=== PATIENT | male | born 1970 | race Caucasian/White ===

== ENCOUNTER 2017-08-22 18:30 | Inpatient (IN) ==
[2017-08-22] MEDS ORDERED: metroNIDAZOLE INJ 500 MG in PREMIX 1 EACH IV STA (19:13)
[2017-08-22] MEDS ORDERED: ONDANSETRON 4 MG/2 ML VIAL IV STA (19:13)
[2017-08-22] MEDS ORDERED: PANTOPRAZOLE 40 MG VIAL IV STA (19:13)
[2017-08-22] MEDS ORDERED: LOPERAMIDE 2 MG CAPSULE PO STA (19:13)
[2017-08-22] MEDS ORDERED: SODIUM CHLORIDE 0.9% 1,000 ML IV STA (19:13)
[2017-08-22] MEDS ORDERED: DICYCLOMINE 20 MG/2 ML AMP IM ONE (19:18)
[2017-08-22] MEDS ORDERED: DICYCLOMINE 20 MG/2 ML AMP IM SCH (19:30)
[2017-08-22 19:36] LABS: Basophils % 0.2 % (0.0-0.8); Hematocrit 31.3 VOL% (42.0-52.0); Hemoglobin 9.9 GM/DL (14.0-18.0); Immature Granulocytes % 0.9 %; Immature Granulocytes Absolute 0.05 #; Lymphocytes # 0.3 10*3/uL (1.4-4.0); Lymphocytes % 5.3 % (21.2-54.2); Mean Corpuscular HGB Conc 31.6 GM/DL (32-36); Mean Corpuscular Hemoglobin 28 PG (27-34); Mean Corpuscular Volume 88.7 FL (87-102); Monocytes # 0.7 10*3/uL (0.11-0.8); Monocytes % 12.7 % (1.7-12.7); Neutrophils # 4.7 10*3/uL (1.4-7.4); Neutrophils % 80.9 % (38.7-73.9); Platelet Count 119 T/CUMM (130-400); Red Blood Count 3.53 MC/CUMM (3.8-5.5); Red Cell Distribution Width 18.4 % (9.3-17.3); White Blood Count 5.8 T/CUMM (4-12)
[2017-08-22 19:55] LABS: Albumin 2.8 G/DL (3.4-5.0); Bilirubin,Total 0.4 MG/DL (0.2-1.0); Calcium 8.6 MG/DL (8.5-10.1); Osmolality,Calculated 273.9 MOS/KG (273-304); Potassium 3.3 MMOL/L (3.5-5.1); Total Protein 6.9 G/DL (6.4-8.3)
[2017-08-22] MEDS ORDERED: ONDANSETRON 4 MG/2 ML VIAL ONE (20:07)
[2017-08-22] MEDS ORDERED: PANTOPRAZOLE 40 MG VIAL IV ONE (20:07)
[2017-08-22] MEDS ORDERED: GLUCAGON 1 MG VIAL IM PRN (20:30)
[2017-08-22] MEDS ORDERED: DEXTROSE 50% 25 GM/50 ML VIAL IV PRN (20:30)
[2017-08-22] MEDS ORDERED: ONDANSETRON 4 MG/2 ML VIAL IV PRN (20:30)
[2017-08-22] MEDS ORDERED: PRAVASTATIN 20 MG TABLET PO SCH (21:00)
[2017-08-22] MEDS ORDERED: DICYCLOMINE 20 MG TABLET PO SCH (21:00)
[2017-08-22] MEDS ORDERED: INSULIN REGULAR 100 UNIT/ML SUBCUT SCH (21:00)
[2017-08-22 21:49] LABS: Band Neutrophils 19 % (0-10); Lymphocytes 9 % (20-55); Metamyelocytes 2 %; Segmented Neutrophils 57 % (50-85); Total Cells Counted 100
[2017-08-22 21:51] LABS: Hypochromasia 1+; Platelet Estimate Normal; Polychromasia 1+
[2017-08-22 21:52] LABS: Microcytosis 2+; Tear Drop Cells Few
[2017-08-23] MEDS ORDERED: metroNIDAZOLE INJ 500 MG in PREMIX 1 EACH IV SCH (03:00)
[2017-08-23] MEDS ORDERED: LEVOTHYROXINE 50 MCG TABLET PO SCH (06:00)
[2017-08-23 07:38] LABS: Basophils % 0.3 % (0.0-0.8); Hematocrit 29.3 VOL% (42.0-52.0); Hemoglobin 9.3 GM/DL (14.0-18.0); Immature Granulocytes % 0.8 %; Immature Granulocytes Absolute 0.05 #; Lymphocytes # 0.3 10*3/uL (1.4-4.0); Lymphocytes % 5.2 % (21.2-54.2); Mean Corpuscular HGB Conc 31.7 GM/DL (32-36); Mean Corpuscular Hemoglobin 28 PG (27-34); Mean Corpuscular Volume 87.5 FL (87-102); Mean Platelet Volume 10.7 FL (9.6-12.0); Monocytes # 0.9 10*3/uL (0.11-0.8); Neutrophils # 4.7 10*3/uL (1.4-7.4); Neutrophils % 78.7 % (38.7-73.9); Platelet Count 115 T/CUMM (130-400); Red Blood Count 3.35 MC/CUMM (3.8-5.5); Red Cell Distribution Width 18.4 % (9.3-17.3); White Blood Count 5.9 T/CUMM (4-12)
[2017-08-23 08:01] LABS: Elliptocytes Few; Hypochromasia 1+
[2017-08-23 08:10] LABS: Albumin 2.9 G/DL (3.4-5.0); Bilirubin,Total 0.9 MG/DL (0.2-1.0); Calcium 8.4 MG/DL (8.5-10.1); Osmolality,Calculated 276.1 MOS/KG (273-304); Potassium 3.2 MMOL/L (3.5-5.1); Total Protein 6.6 G/DL (6.4-8.3)
[2017-08-23] MEDS ORDERED: PANTOPRAZOLE 40 MG TABLET PO SCH (09:00)
[2017-08-23] MEDS ORDERED: methylPREDNISolone SOD SUC 125 MG/2 ML VIAL IV SCH (09:00)
[2017-08-23] MEDS ORDERED: CIPROFLOXACIN INJ 200 MG in PREMIX 1 EACH IV SCH (09:00)
[2017-08-23] MEDS ORDERED: AMIODARONE 200 MG TABLET PO SCH (09:00)
[2017-08-23] MEDS: metroNIDAZOLE INJ 500 MG in PREMIX 1 EACH IV SCH ×2 (09:52→17:11)
[2017-08-23] MEDS: AMIODARONE 200 MG TABLET PO SCH (10:05)
[2017-08-23] MEDS: CARVEDILOL 12.5 MG TABLET PO SCH ×2 (10:05→20:24)
[2017-08-23] MEDS: PANTOPRAZOLE 40 MG TABLET PO SCH (10:05)
[2017-08-23] MEDS: ASPIRIN EC 81 MG TABLET PO SCH (10:05)
[2017-08-23] MEDS: amLODIPine 5 MG TABLET PO SCH (10:05)
[2017-08-23] MEDS: FERROUS SULFATE 325 MG TABLET PO SCH ×2 (10:05→20:24)
[2017-08-23] MEDS: PRAVASTATIN 20 MG TABLET PO SCH (10:05)
[2017-08-23] MEDS: SERTRALINE 50 MG TABLET PO SCH (10:06)
[2017-08-23] MEDS: MONTELUKAST 10 MG TABLET PO SCH (10:06)
[2017-08-23] MEDS: CALCIUM ACETATE 667 MG CAPSULE PO SCH ×2 (11:08→17:11)
[2017-08-23] MEDS: INSULIN GLARGINE 100 UNIT/ML SUBCUT SCH (20:28)
[2017-08-24] MEDS: metroNIDAZOLE INJ 500 MG in PREMIX 1 EACH IV SCH ×3 (02:11→17:58)
[2017-08-24 05:39] LABS: Basophils % 0.3 % (0.0-0.8); Hematocrit 31.4 VOL% (42.0-52.0); Hemoglobin 10.1 GM/DL (14.0-18.0); Immature Granulocytes % 0.8 %; Immature Granulocytes Absolute 0.03 #; Lymphocytes # 0.3 10*3/uL (1.4-4.0); Lymphocytes % 8.7 % (21.2-54.2); Mean Corpuscular HGB Conc 32.2 GM/DL (32-36); Mean Corpuscular Hemoglobin 28 PG (27-34); Mean Corpuscular Volume 86.7 FL (87-102); Mean Platelet Volume 10.3 FL (9.6-12.0); Monocytes # 0.7 10*3/uL (0.11-0.8); Monocytes % 18.8 % (1.7-12.7); Neutrophils # 2.7 10*3/uL (1.4-7.4); Neutrophils % 71.4 % (38.7-73.9); Platelet Count 102 T/CUMM (130-400); Red Blood Count 3.62 MC/CUMM (3.8-5.5); Red Cell Distribution Width 18.3 % (9.3-17.3); White Blood Count 3.8 T/CUMM (4-12)
[2017-08-24 06:15] LABS: Band Neutrophils 25 % (0-10); Lymphocytes 16 % (20-55); Platelet Estimate Decreased; Segmented Neutrophils 52 % (50-85); Total Cells Counted 100
[2017-08-24 06:18] LABS: Osmolality,Calculated 279.5 MOS/KG (273-304); Potassium 3.4 MMOL/L (3.5-5.1)
[2017-08-24] MEDS: LEVOTHYROXINE 50 MCG TABLET PO SCH (07:12)
[2017-08-24] MEDS: amLODIPine 5 MG TABLET PO SCH (09:00)
[2017-08-24] MEDS: CARVEDILOL 12.5 MG TABLET PO SCH ×2 (09:00→20:31)
[2017-08-24] MEDS: MONTELUKAST 10 MG TABLET PO SCH (09:20)
[2017-08-24] MEDS: CALCIUM ACETATE 667 MG CAPSULE PO SCH ×3 (09:20→18:01)
[2017-08-24] MEDS: PANTOPRAZOLE 40 MG TABLET PO SCH (09:21)
[2017-08-24] MEDS: PRAVASTATIN 20 MG TABLET PO SCH (09:21)
[2017-08-24] MEDS: AMIODARONE 200 MG TABLET PO SCH (09:21)
[2017-08-24] MEDS: FERROUS SULFATE 325 MG TABLET PO SCH ×2 (09:22→20:32)
[2017-08-24] MEDS: SERTRALINE 50 MG TABLET PO SCH (09:22)
[2017-08-24] MEDS: ASPIRIN EC 81 MG TABLET PO SCH (09:22)
[2017-08-24] MEDS: CIPROFLOXACIN INJ 200 MG in PREMIX 1 EACH IV SCH ×2 (11:05→20:33)
[2017-08-24] MEDS ORDERED: traMADol 50 MG TABLET PO PRN (11:51)
[2017-08-24] MEDS: ONDANSETRON 4 MG/2 ML VIAL IV PRN (16:04)
[2017-08-24] MEDS: INSULIN LISPRO 100 UNIT/ML SUBCUT SCH ×2 (18:01→20:32)
[2017-08-24] MEDS: INSULIN GLARGINE 100 UNIT/ML SUBCUT SCH (20:32)
[2017-08-25] MEDS: metroNIDAZOLE INJ 500 MG in PREMIX 1 EACH IV SCH ×3 (01:19→17:34)
[2017-08-25] MEDS: LEVOTHYROXINE 50 MCG TABLET PO SCH (06:19)
[2017-08-25] MEDS: CALCIUM ACETATE 667 MG CAPSULE PO SCH ×3 (08:00→17:23)
[2017-08-25] MEDS: FERROUS SULFATE 325 MG TABLET PO SCH ×2 (08:00→20:58)
[2017-08-25] MEDS: INSULIN LISPRO 100 UNIT/ML SUBCUT SCH ×4 (08:12→20:59)
[2017-08-25] MEDS: AMIODARONE 200 MG TABLET PO SCH (08:41)
[2017-08-25] MEDS: ONDANSETRON 4 MG/2 ML VIAL IV PRN (08:42)
[2017-08-25] MEDS: SERTRALINE 50 MG TABLET PO SCH (09:00)
[2017-08-25] MEDS: PANTOPRAZOLE 40 MG TABLET PO SCH (09:00)
[2017-08-25] MEDS: MONTELUKAST 10 MG TABLET PO SCH (09:00)
[2017-08-25] MEDS: PRAVASTATIN 20 MG TABLET PO SCH (09:00)
[2017-08-25] MEDS: ASPIRIN EC 81 MG TABLET PO SCH (09:00)
[2017-08-25] MEDS: CARVEDILOL 12.5 MG TABLET PO SCH ×2 (09:15→20:58)
[2017-08-25] MEDS: amLODIPine 5 MG TABLET PO SCH (09:15)
[2017-08-25] MEDS: CIPROFLOXACIN INJ 200 MG in PREMIX 1 EACH IV SCH (15:59)
[2017-08-25] MEDS: INSULIN GLARGINE 100 UNIT/ML SUBCUT SCH (20:58)
[2017-08-26] MEDS: metroNIDAZOLE INJ 500 MG in PREMIX 1 EACH IV SCH ×3 (01:15→17:03)
[2017-08-26] MEDS: CIPROFLOXACIN INJ 200 MG in PREMIX 1 EACH IV SCH ×2 (03:12→18:17)
[2017-08-26 04:32] LABS: Basophils % 0.4 % (0.0-0.8); Eosinophils % 0.4 % (0.00-10.9); Hematocrit 29.3 VOL% (42.0-52.0); Hemoglobin 9.6 GM/DL (14.0-18.0); Immature Granulocytes % 3.7 %; Immature Granulocytes Absolute 0.18 #; Lymphocytes # 0.5 10*3/uL (1.4-4.0); Lymphocytes % 9.6 % (21.2-54.2); Mean Corpuscular HGB Conc 32.8 GM/DL (32-36); Mean Corpuscular Hemoglobin 28 PG (27-34); Mean Corpuscular Volume 86.2 FL (87-102); Mean Platelet Volume 12.2 FL (9.6-12.0); Monocytes # 0.8 10*3/uL (0.11-0.8); Monocytes % 16.1 % (1.7-12.7); Neutrophils # 3.4 10*3/uL (1.4-7.4); Neutrophils % 69.8 % (38.7-73.9); Platelet Count 106 T/CUMM (130-400); White Blood Count 4.9 T/CUMM (4-12)
[2017-08-26 05:25] LABS: Albumin 2.5 G/DL (3.4-5.0); Bilirubin,Total 0.5 MG/DL (0.2-1.0); Calcium 8.3 MG/DL (8.5-10.1); Osmolality,Calculated 281.2 MOS/KG (273-304); Total Protein 6.6 G/DL (6.4-8.3)
[2017-08-26 05:30] LABS: Potassium 2.5 MMOL/L (3.5-5.1)
[2017-08-26 06:04] LABS: Band Neutrophils 3 % (0-10); Lymphocytes 14 % (20-55); Platelet Estimate Decreased; Segmented Neutrophils 77 % (50-85); Total Cells Counted 100
[2017-08-26] MEDS: POTASSIUM CHLORIDE 20 MEQ TABLET PO PRN ×2 (06:05→09:09)
[2017-08-26] MEDS: LEVOTHYROXINE 50 MCG TABLET PO SCH (06:05)
[2017-08-26] MEDS: INSULIN LISPRO 100 UNIT/ML SUBCUT SCH ×4 (09:08→21:14)
[2017-08-26] MEDS: ASPIRIN EC 81 MG TABLET PO SCH (09:08)
[2017-08-26] MEDS: PRAVASTATIN 20 MG TABLET PO SCH (09:08)
[2017-08-26] MEDS: FERROUS SULFATE 325 MG TABLET PO SCH ×2 (09:09→21:13)
[2017-08-26] MEDS: CALCIUM ACETATE 667 MG CAPSULE PO SCH ×3 (09:09→17:04)
[2017-08-26] MEDS: CARVEDILOL 12.5 MG TABLET PO SCH ×2 (09:09→21:13)
[2017-08-26] MEDS: PANTOPRAZOLE 40 MG TABLET PO SCH (09:09)
[2017-08-26] MEDS: MONTELUKAST 10 MG TABLET PO SCH (09:09)
[2017-08-26] MEDS: AMIODARONE 200 MG TABLET PO SCH (09:09)
[2017-08-26] MEDS: SERTRALINE 50 MG TABLET PO SCH (09:09)
[2017-08-26] MEDS: amLODIPine 5 MG TABLET PO SCH (09:09)
[2017-08-26] MEDS: POTASSIUM CHLORIDE RIDER 10 MEQ in PREMIX 1 EACH IV SCH ×4 (10:20→15:21)
[2017-08-26] MEDS: HYOSCYAMINE 0.125 MG TABLET PO SCH ×4 (12:11→21:11)
[2017-08-26] MEDS: POTASSIUM CHLORIDE 20 MEQ TABLET PO SCH ×2 (17:04→21:11)
[2017-08-26] MEDS: INSULIN GLARGINE 100 UNIT/ML SUBCUT SCH (21:13)
[2017-08-27] MEDS: metroNIDAZOLE INJ 500 MG in PREMIX 1 EACH IV SCH ×2 (01:22→09:27)
[2017-08-27 05:43] LABS: Basophils % 0.6 % (0.0-0.8); Eosinophils # 0.1 10*3/uL (0.0-0.87); Eosinophils % 1.9 % (0.00-10.9); Hematocrit 29.3 VOL% (42.0-52.0); Hemoglobin 9.3 GM/DL (14.0-18.0); Immature Granulocytes % 5.8 %; Lymphocytes # 0.6 10*3/uL (1.4-4.0); Lymphocytes % 11.3 % (21.2-54.2); Mean Corpuscular HGB Conc 31.7 GM/DL (32-36); Mean Corpuscular Hemoglobin 28 PG (27-34); Mean Corpuscular Volume 88.8 FL (87-102); Monocytes # 0.7 10*3/uL (0.11-0.8); Monocytes % 13.1 % (1.7-12.7); Neutrophils # 3.5 10*3/uL (1.4-7.4); Neutrophils % 67.3 % (38.7-73.9); Platelet Count 95 T/CUMM (130-400); Red Cell Distribution Width 17.7 % (9.3-17.3); White Blood Count 5.1 T/CUMM (4-12)
[2017-08-27 06:03] LABS: Calcium 8.4 MG/DL (8.5-10.1); Osmolality,Calculated 290.1 MOS/KG (273-304); Potassium 3.4 MMOL/L (3.5-5.1)
[2017-08-27 06:08] LABS: Band Neutrophils 1 % (0-10); Hypochromasia 1+; Lymphocytes 9 % (20-55); Ovalocytes Slight; Platelet Estimate Decreased; Segmented Neutrophils 77 % (50-85); Total Cells Counted 100
[2017-08-27] MEDS: LEVOTHYROXINE 50 MCG TABLET PO SCH (06:20)
[2017-08-27] MEDS: CIPROFLOXACIN INJ 200 MG in PREMIX 1 EACH IV SCH (06:20)
[2017-08-27] MEDS: INSULIN LISPRO 100 UNIT/ML SUBCUT SCH ×2 (09:01→13:07)
[2017-08-27] MEDS: MONTELUKAST 10 MG TABLET PO SCH (09:03)
[2017-08-27] MEDS: ASPIRIN EC 81 MG TABLET PO SCH (09:03)
[2017-08-27] MEDS: PANTOPRAZOLE 40 MG TABLET PO SCH (09:03)
[2017-08-27] MEDS: CARVEDILOL 12.5 MG TABLET PO SCH (09:04)
[2017-08-27] MEDS: FERROUS SULFATE 325 MG TABLET PO SCH (09:04)
[2017-08-27] MEDS: AMIODARONE 200 MG TABLET PO SCH (09:05)
[2017-08-27] MEDS: amLODIPine 5 MG TABLET PO SCH (09:05)
[2017-08-27] MEDS: CALCIUM ACETATE 667 MG CAPSULE PO SCH ×2 (09:05→13:07)
[2017-08-27] MEDS: SERTRALINE 50 MG TABLET PO SCH (09:05)
[2017-08-27] MEDS: PRAVASTATIN 20 MG TABLET PO SCH (09:19)
[2017-08-27] MEDS: HYOSCYAMINE 0.125 MG TABLET PO SCH ×2 (09:25→13:08)
[2017-08-27] MEDS: POTASSIUM CHLORIDE 20 MEQ TABLET PO SCH (09:25)
[2017-08-27 10:47] VITALS: BP 141/73
== END 2017-08-27 13:35 | disposition home or self-care (01) | DRG 385 ==
LOC: N.ED 18:30 → N.EDINP 20:29 → N.3E 21:26
PROVIDERS: ADMIT Internal Medicine; ATTEND Internal Medicine

== ENCOUNTER 2018-01-17 12:29 | Inpatient (IN) ==
[2018-01-17] MEDS ORDERED: HEPARIN 5,000 UNIT/1 ML VIAL IV ONE (13:01)
[2018-01-17] MEDS ORDERED: ASPIRIN 325 MG TABLET PO STA (13:01)
[2018-01-17] MEDS ORDERED: NITROGLYCERIN 2% OINT 1 INCH/GM PACK TOP STA (13:01)
[2018-01-17] MEDS ORDERED: ONDANSETRON 4 MG/2 ML VIAL IV STA (13:04)
[2018-01-17] MEDS ORDERED: MORPHINE 4 MG/1 ML VIAL IV STA ×2 (13:04→14:00)
[2018-01-17] MEDS ORDERED: ONDANSETRON 4 MG/2 ML VIAL ONE (13:05)
[2018-01-17] MEDS ORDERED: MORPHINE 4 MG/1 ML VIAL ONE (13:05)
[2018-01-17 13:20] LABS: Basophils % 0.4 % (0.0-0.8); Eosinophils % 0.4 % (0.00-10.9); Hematocrit 31.5 VOL% (42.0-52.0); Hemoglobin 9.6 GM/DL (14.0-18.0); Immature Granulocytes Absolute 0.11 #; Lymphocytes # 0.4 10*3/uL (1.4-4.0); Lymphocytes % 3.6 % (21.2-54.2); Mean Corpuscular HGB Conc 30.5 GM/DL (32-36); Mean Corpuscular Hemoglobin 29 PG (27-34); Mean Corpuscular Volume 94.9 FL (87-102); Mean Platelet Volume 10.9 FL (9.6-12.0); Monocytes # 0.8 10*3/uL (0.11-0.8); Monocytes % 6.8 % (1.7-12.7); Neutrophils # 9.9 10*3/uL (1.4-7.4); Neutrophils % 87.8 % (38.7-73.9); Platelet Count 151 T/CUMM (130-400); Red Blood Count 3.32 MC/CUMM (3.8-5.5); White Blood Count 11.3 T/CUMM (4-12)
[2018-01-17 13:30] LABS: PT Patient Result 10.7 SECS; Partial Thromboplastin Time 28.1 SECS (0-40)
[2018-01-17 13:42] LABS: Albumin 3.3 G/DL (3.4-5.0); Bilirubin,Total 0.5 MG/DL (0.2-1.0); Calcium 9.3 MG/DL (8.5-10.1); Osmolality,Calculated 290.4 MOS/KG (273-304); Total Protein 7.5 G/DL (6.4-8.3)
[2018-01-17 14:02] LABS: Eosinophils 1 % (0-10); Hypochromasia Slight; Lymphocytes 5 % (20-55); Macrocytosis Slight; Platelet Estimate Adequate; Segmented Neutrophils 89 % (50-85); Total Cells Counted 100
[2018-01-17] MEDS ORDERED: LEVOFLOXACIN INJ 500 MG in PREMIX 1 EACH IV STA (15:41)
[2018-01-17] MEDS: cloNIDine 0.1 MG TABLET PO PRN (17:35)
[2018-01-17] MEDS ORDERED: GLUCAGON 1 MG VIAL IM PRN (18:02)
[2018-01-17] MEDS ORDERED: SODIUM CHLORIDE 0.9% 1,000 ML IV SCH (18:02)
[2018-01-17] MEDS ORDERED: DEXTROSE 50% 25 GM/50 ML VIAL IV PRN (18:02)
[2018-01-17] MEDS ORDERED: ACETAMINOPHEN 325 MG TABLET PO PRN (18:02)
[2018-01-17] MEDS ORDERED: ONDANSETRON 4 MG/2 ML VIAL IV PRN (18:02)
[2018-01-17] MEDS: INSULIN LISPRO 100 UNIT/ML SUBCUT SCH ×2 (19:27→21:08)
[2018-01-17] MEDS ORDERED: CARVEDILOL 12.5 MG TABLET PO SCH (21:00)
[2018-01-17] MEDS: DOCUSATE SODIUM 100 MG CAPSULE PO SCH (21:03)
[2018-01-17] MEDS: FERROUS SULFATE 325 MG TABLET PO SCH (21:03)
[2018-01-17] MEDS: traMADol 50 MG TABLET PO PRN (21:04)
[2018-01-17] MEDS: INSULIN GLARGINE 100 UNIT/ML SUBCUT SCH (21:05)
[2018-01-17] MEDS: TOBRAMYCIN/DEXAMETHASONE 0.3%-0.1% OPH SUSP 2.5 ML BOTTLE BOTH EYES SCH (21:08)
[2018-01-18] MEDS ORDERED: ZALEPLON 5 MG CAPSULE PO PRN (00:28)
[2018-01-18] MEDS: traMADol 50 MG TABLET PO PRN (02:43)
[2018-01-18] MEDS: cloNIDine 0.1 MG TABLET PO PRN (04:02)
[2018-01-18] MEDS: LEVOTHYROXINE 50 MCG TABLET PO SCH (05:48)
[2018-01-18] MEDS: INSULIN LISPRO 100 UNIT/ML SUBCUT SCH ×7 (08:17→21:17)
[2018-01-18] MEDS: DOCUSATE SODIUM 100 MG CAPSULE PO SCH ×2 (08:18→21:17)
[2018-01-18] MEDS: CALCIUM ACETATE 667 MG CAPSULE PO SCH ×3 (08:18→17:32)
[2018-01-18] MEDS: FERROUS SULFATE 325 MG TABLET PO SCH ×2 (08:18→21:17)
[2018-01-18] MEDS: TOBRAMYCIN/DEXAMETHASONE 0.3%-0.1% OPH SUSP 2.5 ML BOTTLE BOTH EYES SCH ×4 (08:18→21:17)
[2018-01-18] MEDS: AMIODARONE 200 MG TABLET PO SCH (08:18)
[2018-01-18] MEDS: ASPIRIN EC 81 MG TABLET PO SCH (08:18)
[2018-01-18] MEDS ORDERED: amLODIPine 5 MG TABLET PO SCH (09:00)
[2018-01-18] MEDS ORDERED: PANTOPRAZOLE 40 MG TABLET PO SCH (09:00)
[2018-01-18] MEDS: cefTRIAXone 1,000 MG in SYRINGE 1 EACH IV SCH (09:07)
[2018-01-18] MEDS ORDERED: amLODIPine 5 MG TABLET PO ONE (15:00)
[2018-01-18] MEDS: ALBUTEROL/IPRATROPIUM 3 ML NEB RESP TX SCH (15:33)
[2018-01-18] MEDS: SERTRALINE 50 MG TABLET PO SCH (17:33)
[2018-01-18] MEDS: PANTOPRAZOLE 40 MG TABLET PO SCH (17:33)
[2018-01-18] MEDS: MONTELUKAST 10 MG TABLET PO SCH (17:35)
[2018-01-18] MEDS: PRAVASTATIN 20 MG TABLET PO SCH (18:02)
[2018-01-18] MEDS: INSULIN GLARGINE 100 UNIT/ML SUBCUT SCH (21:17)
[2018-01-18] MEDS: CARVEDILOL 12.5 MG TABLET PO SCH (21:17)
[2018-01-19] MEDS: ALBUTEROL/IPRATROPIUM 3 ML NEB RESP TX SCH ×3 (00:03→14:50)
[2018-01-19] MEDS: LEVOTHYROXINE 50 MCG TABLET PO SCH (06:09)
[2018-01-19] MEDS: cefTRIAXone 1,000 MG in SYRINGE 1 EACH IV SCH (08:28)
[2018-01-19] MEDS: INSULIN LISPRO 100 UNIT/ML SUBCUT SCH ×7 (08:29→21:12)
[2018-01-19] MEDS: AMIODARONE 200 MG TABLET PO SCH (08:30)
[2018-01-19] MEDS: amLODIPine 10 MG TABLET PO SCH (08:30)
[2018-01-19] MEDS: CALCIUM ACETATE 667 MG CAPSULE PO SCH ×3 (08:30→18:02)
[2018-01-19] MEDS: TOBRAMYCIN/DEXAMETHASONE 0.3%-0.1% OPH SUSP 2.5 ML BOTTLE BOTH EYES SCH ×3 (08:30→18:03)
[2018-01-19] MEDS: DOCUSATE SODIUM 100 MG CAPSULE PO SCH ×2 (08:30→21:12)
[2018-01-19] MEDS: FERROUS SULFATE 325 MG TABLET PO SCH ×2 (08:31→21:12)
[2018-01-19] MEDS: ASPIRIN EC 81 MG TABLET PO SCH (08:31)
[2018-01-19] MEDS: LEVOFLOXACIN INJ 500 MG in PREMIX 1 EACH IV SCH (08:31)
[2018-01-19] MEDS: MONTELUKAST 10 MG TABLET PO SCH (19:04)
[2018-01-19] MEDS: SERTRALINE 50 MG TABLET PO SCH (19:04)
[2018-01-19] MEDS: PRAVASTATIN 20 MG TABLET PO SCH (19:05)
[2018-01-19] MEDS: PANTOPRAZOLE 40 MG TABLET PO SCH (19:05)
[2018-01-19] MEDS: INSULIN GLARGINE 100 UNIT/ML SUBCUT SCH (21:12)
[2018-01-19] MEDS: CARVEDILOL 12.5 MG TABLET PO SCH (21:12)
[2018-01-20] MEDS: TOBRAMYCIN/DEXAMETHASONE 0.3%-0.1% OPH SUSP 2.5 ML BOTTLE BOTH EYES SCH ×5 (00:27→21:11)
[2018-01-20] MEDS: ALBUTEROL/IPRATROPIUM 3 ML NEB RESP TX SCH ×4 (00:43→22:43)
[2018-01-20] MEDS: LEVOTHYROXINE 50 MCG TABLET PO SCH (06:20)
[2018-01-20] MEDS: amLODIPine 10 MG TABLET PO SCH (08:50)
[2018-01-20] MEDS: ASPIRIN EC 81 MG TABLET PO SCH (08:50)
[2018-01-20] MEDS: FERROUS SULFATE 325 MG TABLET PO SCH ×2 (08:50→21:11)
[2018-01-20] MEDS: DOCUSATE SODIUM 100 MG CAPSULE PO SCH ×2 (08:50→21:11)
[2018-01-20] MEDS: CALCIUM ACETATE 667 MG CAPSULE PO SCH ×3 (08:50→17:06)
[2018-01-20] MEDS: INSULIN LISPRO 100 UNIT/ML SUBCUT SCH ×7 (08:51→21:11)
[2018-01-20] MEDS: AMIODARONE 200 MG TABLET PO SCH (08:51)
[2018-01-20] MEDS: cefTRIAXone 1,000 MG in SYRINGE 1 EACH IV SCH (08:52)
[2018-01-20] MEDS: SERTRALINE 50 MG TABLET PO SCH (17:06)
[2018-01-20] MEDS: MONTELUKAST 10 MG TABLET PO SCH (17:06)
[2018-01-20] MEDS: PRAVASTATIN 20 MG TABLET PO SCH (17:06)
[2018-01-20] MEDS: PANTOPRAZOLE 40 MG TABLET PO SCH (17:07)
[2018-01-20] MEDS: INSULIN GLARGINE 100 UNIT/ML SUBCUT SCH (21:11)
[2018-01-20] MEDS: CARVEDILOL 12.5 MG TABLET PO SCH (21:11)
[2018-01-21] MEDS: LEVOTHYROXINE 50 MCG TABLET PO SCH (06:05)
[2018-01-21] MEDS: ALBUTEROL/IPRATROPIUM 3 ML NEB RESP TX SCH (07:03)
[2018-01-21 07:40] VITALS: BP 160/73
[2018-01-21] MEDS: cefTRIAXone 1,000 MG in SYRINGE 1 EACH IV SCH (08:40)
[2018-01-21] MEDS: FERROUS SULFATE 325 MG TABLET PO SCH (08:41)
[2018-01-21] MEDS: CALCIUM ACETATE 667 MG CAPSULE PO SCH (08:41)
[2018-01-21] MEDS: INSULIN LISPRO 100 UNIT/ML SUBCUT SCH ×2 (08:41)
[2018-01-21] MEDS: DOCUSATE SODIUM 100 MG CAPSULE PO SCH (08:41)
[2018-01-21] MEDS: AMIODARONE 200 MG TABLET PO SCH (08:41)
[2018-01-21] MEDS: ASPIRIN EC 81 MG TABLET PO SCH (08:42)
[2018-01-21] MEDS: amLODIPine 10 MG TABLET PO SCH (08:42)
[2018-01-21] MEDS: TOBRAMYCIN/DEXAMETHASONE 0.3%-0.1% OPH SUSP 2.5 ML BOTTLE BOTH EYES SCH (08:48)
[2018-01-21] MEDS: LEVOFLOXACIN INJ 500 MG in PREMIX 1 EACH IV SCH (08:49)
== END 2018-01-21 09:19 | disposition home or self-care (01) | DRG 193 ==
LOC: N.ED 12:29 → N.EDINP 16:07 → N.2E 17:51
PROVIDERS: ADMIT Internal Medicine; ATTEND Internal Medicine